=== PATIENT | female | born 1970 | race Caucasian/White ===

== ENCOUNTER 2023-12-22 10:56 | Observation (INO) ==
[2023-12-22] MEDS: NS 0.9% 1000 ml BAG 1,000 ML IV ONE ×2 (12:03→12:55)
[2023-12-22 12:19] LABS: Hematocrit 41.2 % (35-45); Hemoglobin 13.8 g/dL (11.5-14.3); Mean Corpuscular Hemoglobin 30.1 pg (27-33); Mean Corpuscular Hgb Conc 33.5 g/dL (31-36); Mean Corpuscular Volume 89.9 fL (80-97); Mean Platelet Volume 8.1 fL (7.5-11.2); Platelet Count 338 10^3/uL (150-450); Red Blood Count 4.58 10^6/uL (3.63-4.92); Red Cell Distribution Width 13.2 % (12-17); White Blood Count 16.3 10^3/uL (3.8-11.8)
[2023-12-22 12:25] LABS: INR 1.22 (0.83-1.13)
[2023-12-22 12:26] LABS: Urine Appearance Clear; Urine Bacteria Absent /HPF (Absent); Urine Bilirubin Negative (Negative); Urine Blood Trace (Negative); Urine Color Yellow; Urine Glucose 4+ (>=1000 mg/dL) (Negative); Urine Ketones 4+ (Negative); Urine Nitrite Negative (Negative); Urine Protein 1+ (>=30 mg/dL) (Negative); Urine Red Blood Cell 1+(3-5/hpf) /HPF (0-Trace); Urine Squamous Epithelial Cell Present /HPF (Absent); Urine Urobilinogen Negative (Negative); Urine White Blood Cell Trace(0-5/hpf) /HPF (0-Trace); Urine pH 6.5 (5.0-8.0)
[2023-12-22 12:27] LABS: C Reactive Protein 318.83 mg/L (<8.01); Magnesium 2.4 mg/dL (1.9-2.7); Phosphorus 4.1 mg/dL (2.5-5.0)
[2023-12-22 12:28] LABS: Albumin 3.5 g/dL (3.2-5.2); Albumin/Globulin Ratio 1.3 (1-3); Calcium 8.7 mg/dL (8.6-10.3); Creatinine, Serum 0.94 mg/dL (0.51-0.95); Globulin 2.8 g/dL (2-4); Potassium 3.2 mmol/L (3.5-5.0); Total Bilirubin 0.8 mg/dL (0.2-1.0); Total Protein 6.3 g/dL (6.4-8.9); eGFR CKD-EPI 73.5 (>60)
[2023-12-22 12:35] LABS: HCG Pregnancy 3.71 mIU/mL
[2023-12-22 13:00] LABS: ABS Basophils 0.1 10^3/uL (0.0-0.1); ABS Lymphocytes 0.8 10^3/uL (1.0-4.8); ABS Monocytes 0.1 10^3/uL (0.0-0.9); ABS Neutrophils 15.2 10^3/uL (1.5-7.6); Eosinophil % 0.2 %; Lymphocyte % 4.7 %; RBC Morphology Normal (Normal); Toxic Granulation 1+
[2023-12-22 13:11] LABS: High Sensitivity Troponin 1 Hr 140 pg/mL (<15)
[2023-12-22] MEDS: Piperacillin/Tazobac 3.375 BAG 3.375 GM/100 ML BAG IV ONE (13:24)
[2023-12-22 14:07] LABS: RBC Parasite Smear No Parasites Seen (No Parasite)
[2023-12-22] MEDS ORDERED: Potassium Chloride LIQUID 20 MEQ/15 ML LIQUID PO ONE (14:20)
[2023-12-22] MEDS: cefTRIAXone 1 gm/50 mL D5W 1 GM/50 ML BAG IV SCH (15:00)
[2023-12-22] MEDS: Potassium Chloride LIQUID 20 MEQ/15 ML LIQUID PO ONE ×2 (15:00→17:13)
[2023-12-22] MEDS ORDERED: Dextrose 50% Syringe 50 ml 25 GM/50 ML SYRINGE IV PUSH PRN (15:28)
[2023-12-22] MEDS: Azithromycin 500 mg/250 ml NS 500 MG/250 ML BAG IVPB SCH (15:58)
[2023-12-22 16:52] LABS: Hepatitis C Antibody Negative (Negative)
[2023-12-22] MEDS: Iohexol 350 (CONTRAST) 500 ML MDV IV ONE (19:44)
[2023-12-22] MEDS: CMCS: diPHENhydraMINE CREAM 2%(NF) 28 gm TUBE TOPICAL SCH (20:21)
[2023-12-22] MEDS: Enoxaparin 40 MG/0.4 ML SYR SUBCUT SCH (20:22)
[2023-12-23] MEDS: Mometasone/Formoter 200/5 MDI INH SCH (07:40)
[2023-12-23] MEDS: Insulin GLARGINE 100 un/ml 10 ml VIAL SUBCUT SCH (08:43)
[2023-12-23] MEDS: Fluticasone NASAL SPRAY 50MCG 16 gm SPRAY BTL BOTH NARES SCH (08:50)
[2023-12-23 12:14] LABS: HDL Cholesterol 14.6 mg/dL
[2023-12-23] MEDS: Insulin GLARGINE 100 un/ml 10 ml VIAL SUBCUT ONE (13:34)
[2023-12-24 06:25] LABS: Hematocrit 38.1 % (35-45); Hemoglobin 12.7 g/dL (11.5-14.3); Mean Corpuscular Hemoglobin 30.4 pg (27-33); Mean Corpuscular Hgb Conc 33.4 g/dL (31-36); Mean Corpuscular Volume 90.8 fL (80-97); Mean Platelet Volume 8.7 fL (7.5-11.2); Platelet Count 174 10^3/uL (150-450); Red Cell Distribution Width 13.1 % (12-17)
[2023-12-24 06:42] LABS: Calcium 8.4 mg/dL (8.6-10.3); Creatinine, Serum 0.8 mg/dL (0.51-0.95); Magnesium 2.5 mg/dL (1.9-2.7); Potassium 3.5 mmol/L (3.5-5.0); eGFR CKD-EPI 89.2 (>60)
[2023-12-24] MEDS: Insulin GLARGINE 100 un/ml 10 ml VIAL SUBCUT SCH (08:24)
[2023-12-24] MEDS ORDERED: Insulin GLARGINE 100 un/ml 10 ml VIAL SUBCUT SCH (09:00)
[2023-12-24 14:10] VITALS: BP 124/70
[2023-12-25 13:45] LABS: Immunoglobulin A 250 mg/dL (61 - 356)
[2023-12-25 15:48] LABS: Anaplasma phagocytophilum Negative (Negative); B. miyamotoi PCR, B Negative (Negative); Babesia divergens/MO-1 Negative (Negative); Babesia ducani Negative (Negative); Ehrlichia chaffeensis Negative (Negative); Ehrlichia ewingii/canis Negative (Negative); Ehrlichia muris eauclairensis Negative (Negative)
[2023-12-25 16:34] LABS: JO-1 Antibody <0.2 U; Scl 70 Ab, IgG, S <0.2 U
[2023-12-25 19:28] LABS: Cyclic Citrullinated Pept IgG <15.6 U
[2023-12-25 20:17] LABS: Mitochondria M2 Antibody <0.1 U
[2023-12-26 13:15] LABS: Mycoplasma pneumoniae IgG Ab Positive (Negative); Mycoplasma pneumoniae IgM Ab Negative (Negative)
[2023-12-26 16:09] LABS: Myeloperoxidase Antibody <0.2 U
== END 2023-12-24 15:20 | disposition home or self-care (01) ==
LOC: EDHOLD 10:56 → ED 10:56 → SUATTDRO 13:45 → MEDTELE 16:03
PROVIDERS: ADMIT Internal Medicine; ATTEND Internal Medicine